=== PATIENT | female | born 1970 | race Caucasian/White ===

== ENCOUNTER → 2018-09-25 | Outpatient (CLI) | payer BC | LOC: M.RAD 09:54 | DX: M25.512 Pain in left shoulder (principal); I10 Essential (primary) hypertension ==

== ENCOUNTER 2021-06-17 06:02 | Emergency (ER) | payer BC ==
[~2021-06-17] VITALS: Ht 157.5 cm; Wt 99.3 kg
[2021-06-17] MEDS ORDERED: LEXAPRO5 MG PO (06:20)
[2021-06-17] MEDS ORDERED: BYSTOLIC2.5 MG PO (06:20)
[2021-06-17 06:47] LABS: ABSOLUTE LYMPHOCYTES 1.3 thou/uL (0.8-5.3); ABSOLUTE MONOCYTES 0.5 thou/uL (0.0-1.2); ABSOLUTE NEUTROPHILS 8.6 thou/uL (1.6-8.1); BASOPHILS 0.4 %; EOSINOPHILS 0.4 %; HEMATOCRIT 30.3 % (37.0-47.0); LYMPHOCYTES 12.2 %; MCH 26.9 pg (26.0-34.0); MCHC 33.1 g/dL (28.0-37.0); MCV 81.2 fL (80.0-100.0); MONOCYTES 4.5 %; MPV 7.7 fl. (7.2-11.1); NUCLEATED RBCS 0 /100WBC; PLATELET COUNT* 370 thou/uL (150-400); POLYS 82.5 %; RBC 3.73 mil/uL (4.20-5.00); RDW-CV 14.3 % (10.5-14.5); WBC 10.4 thou/uL (4.0-11.0)
[2021-06-17 06:53] LABS: CALCIUM 8.5 mg/dL (8.5-10.1); POTASSIUM 4.2 mmol/L (3.5-5.1)
[2021-06-17 07:06] LABS: ALBUMIN 3.5 g/dL (3.4-5.0); TOTAL BILIRUBIN 0.1 mg/dL (<0.1-1.0); TOTAL PROTEIN 7.2 g/dL (6.4-8.2)
[2021-06-17 08:46] LABS: URINE BILIRUBIN NEGATIVE (Negative); URINE BLOOD 3+ (Negative); URINE CLARITY CLEAR; URINE COLOR YELLOW; URINE GLUCOSE-RANDOM NEGATIVE (Negative); URINE KETONES NEGATIVE (Negative); URINE LEUKOCYTES-REFLEX NEGATIVE (Negative); URINE NITRITE-REFLEX NEGATIVE (Negative); URINE PROTEIN 1+ (Negative); URINE UROBILINOGEN 0.2 E.U./dl (0.2-1.0)
[2021-06-17 09:00] LABS: BACTERIA-REFLEX 1-9 Few /HPF (None Seen); CASTS None Seen /LPF (None Seen); CRYSTALS None Seen /LPF (None Seen); MUCUS None Seen strn/LPF (None Seen); SQUAMOUS 0-3 Few /LPF (0-3); URINE RBC >20 Many /HPF (0-2); URINE WBC-REFLEX 0-5 Rare /HPF (0-5)
[2021-06-17] MEDS ORDERED: PHENERGAN 25 MG25 M1 PO (09:10)
[2021-06-17] MEDS ORDERED: HYDROCODON-ACE1 EAC7 PO (09:10)
[2021-06-17 09:45] VITALS: BP 124/68
== END 2021-06-17 09:46 | disposition home or self-care (01) ==
LOC: M.ERS 06:02
PROVIDERS: Emergency Medicine
DX: K80.50 Calculus of bile duct without cholangitis or cholecystitis without obstruction (principal); R10.11 Right upper quadrant pain; R11.2 Nausea with vomiting, unspecified; Z79.899 Other long term (current) drug therapy

== ENCOUNTER → 2021-06-28 | Outpatient (CLI) | payer BC ==
[~2021-06-28] MED LIST: BYSTOLIC2.5 MG PO; HYDROCODON-ACE1 EAC7 PO; LEXAPRO5 MG PO; PHENERGAN 25 MG25 M1 PO
== END ==
LOC: M.ULTRA 14:00
PROVIDERS: ATTEND Specialist
DX: D25.9 Leiomyoma of uterus, unspecified (principal); N83.201 Unspecified ovarian cyst, right side; N85.2 Hypertrophy of uterus; N92.4 Excessive bleeding in the premenopausal period